=== PATIENT | male | born 1990 | race African-American/Black ===

== ENCOUNTER 2023-08-14 05:52 | Emergency (ER) | payer SELFPAY ==
[2023-08-14 06:55] LABS: SARS-CoV-2 NAA Rapid Test Not Detected (NotDetected)
[2023-08-14] MEDS ORDERED: Acetaminophen 500 MG TAB ONE (07:01)
== END 2023-08-14 09:07 | disposition home or self-care (01) ==
LOC: ERS 05:52
DX: J18.9 Pneumonia, unspecified organism (principal); F17.200 Nicotine dependence, unspecified, uncomplicated
CPT/HCPCS: 71046